=== PATIENT | female | born 1990 | race Caucasian/White ===

== ENCOUNTER → 2017-07-04 | Outpatient (CLI) | payer OTHER ==
[~2017-07-04] MED LIST: CIPR500T4 PO; NAPR-576 PO; OXYC1TAB63 PO; PHEN-426 PO
== END ==
LOC: HPND 08:36
PROVIDERS: ATTEND Obstetrics & Gynecology
DX: O48.0 Post-term pregnancy (principal)
CPT/HCPCS: 76816; 76818

== ENCOUNTER 2017-07-07 07:40 | Inpatient (IN) | payer OTHER ==
[2017-07-07] VITALS (105 sets, daily range): BP systolic 89–140; BP diastolic 33–99; PULSE 57–221; RESP 18–20; TEMP 97.8–98.8
[~2017-07-07] VITALS: Ht 165.1 cm; Wt 70.0 kg
[~2017-07-07 07:40] MED LIST changes: -OXYC1TAB63 PO
[2017-07-07] MEDS ORDERED: LACTATED RINGER'S 1000 ML INJ 1,000 ML IV PRN (08:31)
[2017-07-07] MEDS: LACTATED RINGER'S 1000 ML INJ 1,000 ML IV SCH ×2 (08:31→10:30)
--- NOTE | 2017-07-07 08:38 | HHI.HP ---
HPI Chief Complaint Induction Date Seen: Jul 07, 2017 Time Seen: 08:30 Travel History International Travel<30 Days: No Contact w/Intl Traveler<30Days: No Known Affected Area: No History of Present Illness HPI 26 yo G1 po for induction at 41 1/7 weeks and has CTX all night Weeks Gestation: 41 Para: 0 : 1 Last Menstrual Period: Jul 07, 2017 History Past Medical History Medical History: Denies Significant Hx Past Surgical History Surgical History: No Previous Surgery Family History Family History: Negative Social History Alcohol Use: No Tobacco Use: No Substance Abuse: No Allergies-Medications (Allergen,Severity, Reaction): Coded Allergies: No Known Allergies (Unverified , 10/07/11) Home Meds Active Scripts Phenazopyridine Hcl (Pyridium) 100 Mg Tab, 100 MG PO TID, #20 Prov:JAIMIE PACK MD 10/07/11 Ciprofloxacin Hcl (Cipro) 500 Mg Tab, 500 MG PO BID, #6 Prov:JAIMIE PACK MD 10/07/11 Reported Medications Naproxen (Naproxen) 500 Mg Tab, 500 MG PO DIRECTED Y 10/07/11 Review of Systems Except as stated in HPI: all other systems reviewed are Neg Physical Exam Narrative GENERAL: Well-nourished, well-developed patient. SKIN: Warm and dry. HEAD: Normocephalic and atraumatic. EYES: No scleral icterus. No injection or drainage. ENT: No nasal drainage noted. Mucous membranes pink. Airway patent. NECK: Supple, trachea midline. No JVD. CARDIOVASCULAR: Regular rate and rhythm without murmurs, gallops, or rubs. RESPIRATORY: Breath sounds equal bilaterally. No accessory muscle use. BREASTS: Bilateral exam showed no masses , no retractions, no nipple discharge. ABDOMEN/GI: Abdomen soft, non-tender, bowel sounds present, no rebound, no guarding Gravid to 41 weeks size Fundal Height: [-] GENITOURINARY: External Genitalia: intact and normal in appearance BUS glands: [-] Cervix: [-] Dilatation: 2 Effacement: 90 Station: [-] Presentation: vtx Membranes: intact Uterine Contractions: [-] FHT's: Category: 1 Baseline: [-] Reactive: [-] Variability: [-] Decels: [-] EXTREMITIES: No cyanosis or edema. BACK: Nontender without obvious deformity. No CVA tenderness. NEUROLOGICAL: Awake and alert. Motor and sensory grossly within normal limits. Five out of 5 muscle strength in all muscle groups. Normal speech. Caprini VTE Risk Assessment Caprini VTE Risk Assessment: No/Low Risk (score <= 1) Caprini Risk Assessment Model Point Value = 1 Point Value = 2 Point Value = 3 Point Value = 5 Age 41-60 Minor surgery BMI > 25 kg/m2 Swollen legs Varicose veins or History of unexplained or recurrent spontaneous Oral contraceptives or hormone replacement Sepsis (< 1 month) Serious lung disease, including pneumonia (< 1 month) Abnormal pulmonary function Acute myocardial infarction Congestive heart failure (< 1 month) History of inflammatory bowel disease Medical patient at bed rest Age 61-74 Arthroscopic surgery Major open surgery (> 45 min) Laparoscopic surgery (> 45 min) Malignancy Confined to bed (> 72 hours) Immobilizing plaster cast Central venous access Age >= 75 History of VTE Family history of VTE Factor V Leiden Prothrombin [id number] Lupus anticoagulant Anticardiolipin antibodies Elevated serum homocysteine Heparin-induced thrombocytopenia Other congenital or acquired thrombophilia Stroke (< 1 month) Elective arthroplasty Hip, pelvis, or leg fracture Acute spinal cord injury (< 1 month) Prophylaxis Regimen Total Risk Factor Score Risk Level Prophylaxis Regimen 0-1 Low Early ambulation 2 Moderate Order ONE of the following: *Sequential Compression Device (SCD) *Heparin 5000 units SQ BID 3-4 Higher Order ONE of the following medications: *Heparin 5000 units SQ TID *Enoxaparin/Lovenox 40 mg SQ daily (WT < 150 kg, CrCl > 30 mL/min) *Enoxaparin/Lovenox 30 mg SQ daily (WT < 150 kg, CrCl > 10-29 mL/min) *Enoxaparin/Lovenox 30 mg SQ BID (WT < 150 kg, CrCl > 30 mL/min) AND/OR *Sequential Compression Device (SCD) 5 or more Highest Order ONE of the following medications: *Heparin 5000 units SQ TID (Preferred with Epidurals) *Enoxaparin/Lovenox 40 mg SQ daily (WT < 150 kg, CrCl > 30 mL/min) *Enoxaparin/Lovenox 30 mg SQ daily (WT < 150 kg, CrCl > 10-29 mL/min) *Enoxaparin/Lovenox 30 mg SQ BID (WT < 150 kg, CrCl > 30 mL/min) AND *Sequential Compression Device (SCD) Data Data Vital Signs Reviewed: Yes Orders Orders Admit To Inpatient (07/07/17 ) Code Status (07/07/17 08:31) Vital Signs (Adult) .Per protocol (07/07/17 08:31) Heart (07/07/17 08:31) Amnioinfusion (07/07/17 08:31) Urinary Catheter Management .ONCE (07/07/17 08:31) Lactated Ringer's 1000 Ml Inj (Lr 1000 M (07/07/17 08:31) Lactated Ringer's 1000 Ml Inj (Lr 1000 M (07/07/17 08:31) Sodium Chlorid 0.9% 500 Ml Inj (Ns 500 M (07/07/17 08:45) Sodium Chlor 0.9% 1000 Ml Inj (Ns 1000 M (07/07/17 08:51) Lidocaine 1% Inj (50 Ml) (Xylocaine 1% I (07/07/17 08:45) Citric Acid-Sodium Citrate Liq (Bicitra (07/07/17 08:45) Fentanyl Inj (Fentanyl Inj) (07/07/17 08:45) Fentanyl Inj (Fentanyl Inj) (07/07/17 08:45) Complete Blood Count With Diff (07/07/17 08:31) Hold Clot (07/07/17 08:31) Abo/Rh Blood Type (07/07/17 08:31) Urinalysis - C+S If Indicated (07/07/17 08:31) Drug Screen, Random Urine (07/07/17 08:31) Ob/Psych Drug Screen, Urine (07/07/17 08:31) Resp Oxygen Non Rebreathe Mask (07/07/17 ) ^ Epidural / Intrathecal Infus (07/07/17 08:31) Oxytocin 30 Units-500ml Premix (Pitocin (07/07/17 08:45) Lidocaine 1% Inj (50 Ml) (Xylocaine 1% I (07/07/17 08:45) Light Mineral Oil (Muri-Lube Oil) (07/07/17 08:45) ^ Non Stress Test (07/07/17 08:31) Response To Medication .Post New Med Administration, Reaction (07/07/17 08:31) ^ Discontinue Medication (07/07/17 08:31) Oxytocin Drip (2-2-30) (07/07/17 08:45) Inpatient Certification (07/07/17 ) Specimen To Be Collected PRN (07/07/17 08:31) Specimen To Be Collected PRN (07/07/17 08:31) Group B Strep: Negative Assessment/Plan Problem List: (1) 41 weeks gestation of ICD Codes: Z3A.41 - 41 weeks gestation of Discharge Planning doing well Carlo Alfaro MD Jul 07, 2017 08:38
[2017-07-07] MEDS ORDERED: LIDOCAINE HCL 1% 50 ML VIAL INFIL PRN (08:45)
[2017-07-07] MEDS ORDERED: LIDOCAINE HCL 1% 50 ML VIAL I-DERMAL PRN (08:45)
[2017-07-07] MEDS ORDERED: SODIUM CHLORID 0.9% 500 ML INJ 500 ML IV PRN (08:45)
[2017-07-07] MEDS ORDERED: OXYTOCIN 30 UNITS-500ML PREMIX 500 ML IV PRN (08:45)
[2017-07-07] MEDS ORDERED: OXYTOCIN 30 UNITS-500ML PREMIX 500 ML IV ONE (08:45)
[2017-07-07] MEDS ORDERED: MINERAL OIL 10 ML VIAL TOPICAL PRN (08:45)
[2017-07-07] MEDS ORDERED: CITRIC ACID-SODIUM CITRATE LIQ 30 ML UDC PO SCH (08:45)
[2017-07-07 08:49] LABS: AUTOMATED NEUTROPHIL # 7.7 TH/MM3 (1.8-7.7); BASOPHIL # 0.1 TH/MM3 (0-0.2); BASOPHIL % 0.5 % (0.0-2.0); EOSINOPHIL % 0.2 % (0.0-4.0); HEMATOCRIT 39.7 % (35.0-46.0); HEMOGLOBIN 13.7 GM/DL (11.6-15.3); LYMPH % 13.4 % (9.0-44.0); LYMPHOCYTE # 1.3 TH/MM3 (1.0-4.8); MEAN CELL VOLUME 89.9 FL (80.0-100.0); MEAN CORPUSCULAR HEMOGLOBIN 31.1 PG (27.0-34.0); MEAN CORPUSCULAR HGB CONC 34.6 % (32.0-36.0); MONO % 7.1 % (0.0-8.0); MONOCYTE # 0.7 TH/MM3 (0-0.9); NEUT % 78.8 % (16.0-70.0); PLATELET COUNT 165 TH/MM3 (150-450); RED BLOOD COUNT 4.41 MIL/MM3 (4.00-5.30); RED CELL DISTRIBUTION WIDTH 14.2 % (11.6-17.2); WHITE BLOOD COUNT 9.8 TH/MM3 (4.0-11.0)
[2017-07-07] MEDS ORDERED: SODIUM CHLOR 0.9% 1000 ML INJ 1,000 ML IV PRN (08:51)
[2017-07-07 09:35] LABS: BILIRUBIN, URINE NEG (NEG); BLOOD, URINE SMALL (NEG); GLUCOSE,URINE NEG (NEG); KETONE, URINE NEG (NEG); NITRITE,URINE NEG (NEG); SQUAMOUS EPITHELIAL CELL URINE 4 /hpf (0-5); URINE COLOR LIGHT-YELLOW (YELLW/STRAW); URINE LEUKOCYTE ESTERASE NEG (NEG)
[2017-07-07] MEDS ORDERED: ONDANSETRON HCL 4 MG/2 ML VIAL IV PUSH PRN (11:30)
[2017-07-07] MEDS ORDERED: fentaNYL 2MCG-BUPIV 0.125% INJ 100 ML ONE (11:33)
[2017-07-07] MEDS ORDERED: ePHEDrine/NS 25 MG/5 ML SYRINGE ONE (11:34)
[2017-07-07] MEDS ORDERED: fentaNYL 2MCG-BUPIV 0.125% 100 ML EPIDURAL SCH (13:00)
[2017-07-07] MEDS ORDERED: DO NOT ADMINISTER ANTICOAGULANTS PRN (13:00)
[2017-07-07] MEDS ORDERED: NO SYSTEM NARCOTICS PRN (13:00)
[2017-07-07] MEDS ORDERED: ePHEDrine/NS 25 MG/5 ML SYRINGE IV PUSH PRN (13:00)
[2017-07-07] MEDS ORDERED: LIDOCAINE HCL 1% PF 30 ML VIAL ONE (15:59)
[2017-07-07] MEDS ORDERED: MEASLES, MUMPS, RUBELLA VACCINE 0.5 ML VIAL SQ ONE (16:00)
[2017-07-07] MEDS ORDERED: DIPHTH/TETANUS/ACEL PERTUSSIS (BOOSTER) 0.5 ML VIAL/PFS IM ONE (16:00)
[2017-07-07] MEDS ORDERED: SODIUM CHLORIDE 0.9% FLUSH 10 ML FLUSH IV FLUSH PRN (16:45)
[2017-07-07] MEDS ORDERED: oxyCODONE/ACETAMINOPHEN 5 MG/325 MG TAB PO PRN ×2 (16:45)
[2017-07-07] MEDS ORDERED: OXYTOCIN 30 UNITS-500ML PREMIX 500 ML IV SCH (16:45)
[2017-07-07] MEDS ORDERED: ACETAMINOPHEN 325 MG TAB PO PRN (16:45)
[2017-07-07] MEDS ORDERED: ALUMINUM/MAGNESIUM/SIMETH 30 ML CUP PO PRN (16:45)
[2017-07-07] MEDS ORDERED: ZOLPIDEM TARTRATE 5 MG TAB PO PRN (16:45)
[2017-07-07] MEDS ORDERED: WITCH HAZEL 50%/GLYCERIN 12.5% 40 PAD JAR TOPICAL PRN (16:45)
[2017-07-07] MEDS ORDERED: DOCUSATE SODIUM 50 MG/SENNA 8.6 MG TAB PO PRN (16:45)
[2017-07-07] MEDS ORDERED: BENZOCAINE 20% TOPICAL SPRAY 60 ML CAN TOPICAL PRN (16:45)
[2017-07-07] MEDS ORDERED: ONDANSETRON ODT 4 MG TAB PO PRN (16:45)
--- NOTE | 2017-07-07 16:52 | PD.OB.DELI ---
Weeks gestation: 41 Gest age assessed date: Jul 07, 2017 Gest age assessed time: 09:00 Pt started active labor?: Yes Active labor start date: Jul 07, 2017 Active labor start time: 09:00 Medical induction of labor?: Yes Medical induction start date: Jul 07, 2017 Medical induction start time: 09:00 Artificial rupture of membrane: Yes Artificial ROM date: Jul 07, 2017 Artifical ROM time: 09:00 Anesthesia: Epidural Episiotomy: None Vaginal Delivery: Normal, Spontaneous Presentation: Occiput anterior Nuchal Cord: None Delayed cord clamping (45 sec): Yes Infant: Female, Single Delivery date: Jul 07, 2017 Delivery time: 16:10 One Minute : 9 Five Minute : 9 Placenta: Manual removal, Not Intact (manual extraction with curettage), 3 vessel cord Estimated blood loss: 300 Carlo Alfaro MD Jul 07, 2017 16:52
[2017-07-07] MEDS ORDERED: ceFAZolin 2 GM PREMIX 50 ML IV ONE (17:15)
[2017-07-07] MEDS ORDERED: ceFAZolin 2 GM in NS 100 ML IV SCH (17:15)
[2017-07-07] MEDS: SODIUM CHLORIDE 0.9% FLUSH 10 ML FLUSH IV FLUSH SCH (21:14)
[2017-07-07] MEDS: IBUPROFEN 800 MG TAB PO PRN (21:14)
[2017-07-08] MEDS: LACTATED RINGER'S 1000 ML INJ 1,000 ML IV SCH ×2 (00:31→10:47)
[2017-07-08 07:53] VITALS: BP 112/76; PULSE 71; RESP 20; TEMP 98; O2SAT 100
--- NOTE | 2017-07-08 08:07 | HHI.OB ---
Subjective Post Day: 1 Objective Vitals/I&O Vital Signs Date Time Temp Pulse Resp B/P (MAP) Pulse Ox O2 Delivery O2 Flow Rate FiO2 07/08/17 07:53 71 20 112/76 (88) 100 07/08/17 07:53 98.0 07/07/17 20:11 98.8 91 18 140/82 (101) 07/07/17 18:16 80 128/74 (92) 07/07/17 18:00 79 124/80 (95) 07/07/17 17:46 82 115/65 (82) 07/07/17 17:30 75 120/71 (87) 07/07/17 17:23 18 07/07/17 17:20 98.0 07/07/17 17:19 103 108/33 (58) 07/07/17 16:47 221 107/78 (88) 07/07/17 15:35 104 07/07/17 15:31 110 101/73 (82) 07/07/17 15:30 99 07/07/17 15:25 86 07/07/17 15:20 59 07/07/17 15:15 57 07/07/17 15:15 59 118/73 (88) 07/07/17 15:10 68 07/07/17 15:05 69 07/07/17 15:00 68 07/07/17 15:00 72 115/71 (86) 07/07/17 14:55 69 07/07/17 14:50 83 07/07/17 14:45 59 07/07/17 14:45 98.5 18 07/07/17 14:45 58 112/65 (81) 07/07/17 14:40 59 07/07/17 14:35 67 07/07/17 14:30 66 126/75 (92) 07/07/17 14:30 65 07/07/17 14:25 69 07/07/17 14:20 68 07/07/17 14:16 66 89/72 (78) 07/07/17 14:15 67 07/07/17 14:10 70 07/07/17 14:05 64 07/07/17 14:01 85 118/98 (105) 07/07/17 14:00 70 07/07/17 13:55 68 07/07/17 13:55 64 108/61 (77) 07/07/17 13:50 66 07/07/17 13:46 74 116/61 (79) 07/07/17 13:45 67 07/07/17 13:40 75 07/07/17 13:35 80 07/07/17 13:31 90 98/68 (78) 07/07/17 13:30 73 07/07/17 13:25 70 07/07/17 13:20 74 07/07/17 13:16 74 107/54 (71) 07/07/17 13:15 72 07/07/17 13:10 69 07/07/17 13:05 88 07/07/17 13:02 175 103/68 (80) 07/07/17 13:00 87 07/07/17 12:55 90 07/07/17 12:50 79 07/07/17 12:45 165 07/07/17 12:45 88 122/77 (92) 07/07/17 12:40 79 07/07/17 12:39 97.8 20 07/07/17 12:35 96 121/70 (87) 07/07/17 12:35 92 07/07/17 12:31 107 111/69 (83) 07/07/17 12:30 101 07/07/17 12:25 96 117/85 (96) 07/07/17 12:25 159 07/07/17 12:20 95 119/72 (88) 07/07/17 12:20 93 07/07/17 12:15 93 127/99 (108) 07/07/17 12:15 77 07/07/17 12:11 119 140/73 (95) 07/07/17 12:10 104 07/07/17 12:05 82 127/77 (94) 07/07/17 12:05 82 07/07/17 11:55 82 07/07/17 11:50 77 07/07/17 11:45 69 07/07/17 11:40 70 07/07/17 11:35 71 07/07/17 11:30 64 07/07/17 11:15 66 07/07/17 11:10 67 07/07/17 11:07 62 126/85 (99) 07/07/17 11:05 66 07/07/17 11:00 65 4/9/18 10:55 58 07/07/17 10:50 66 07/07/17 10:45 74 07/07/17 10:40 60 07/07/17 10:35 66 07/07/17 10:30 75 07/07/17 10:20 69 07/07/17 10:15 64 07/07/17 10:15 97.9 07/07/17 10:10 63 07/07/17 10:05 60 07/07/17 10:00 63 07/07/17 09:55 64 07/07/17 09:50 65 07/07/17 09:45 61 07/07/17 09:40 65 07/07/17 09:35 70 07/07/17 09:30 65 07/07/17 09:25 66 07/07/17 09:20 68 07/07/17 09:15 64 07/07/17 09:10 70 07/07/17 09:05 59 07/07/17 09:00 64 07/07/17 08:55 61 07/07/17 08:50 66 07/07/17 08:45 68 07/07/17 08:40 72 07/07/17 08:35 68 07/07/17 08:30 71 07/07/17 08:25 70 07/07/17 08:20 74 07/07/17 08:15 18 Objective Remarks GENERAL: Well-nourished, well-developed patient. ABDOMEN/GI: Abdomen soft, non-tender. Fundus: Firm, non-tender at umbilicus. GENITOURINARY: Light to moderate bleeding. EXTREMITIES: No cyanosis or edema, non-tender, without signs of DVT. Medications and IVs Current Medications Medications (Trade) Dose Ordered Sig/Rosaura Route Start Time Stop Time Status Last Admin Lactated Ringer's 1,000 ml @ 125 mls/hr Q8H IV 07/07/17 08:31 07/07/17 10:30 Lactated Ringer's 1,000 ml @ 3,000 mls/hr Q20M PRN IV 07/07/17 08:31 Sodium Chloride 1,000 ml @ 100 mls/hr Q10H PRN IV 07/07/17 08:51 07/07/17 13:45 (Xylocaine 1% Inj (50 ml)) 0.1 ml UNSCH X1 PRN I-DERMAL 07/07/17 08:45 07/10/17 08:44 (Bicitra Liq) 30 ml AUTOMATION QA LEAD PO 07/07/17 08:45 07/11/17 08:44 (fentaNYL INJ) 50 mcg Q1H PRN IV PUSH 07/07/17 08:45 07/07/17 10:30 (fentaNYL INJ) 100 mcg Q1H PRN IV PUSH 07/07/17 08:45 (Xylocaine 1% Inj (50 ml)) 10 ml UNSCH X1 PRN INFIL 07/07/17 08:45 07/09/17 08:44 (Muri-Lube Oil) 10 ml UNSCH PRN TOPICAL 07/07/17 08:45 07/07/17 16:19 Oxytocin 500 ml @ 0 mls/hr TITRATE PRN IV 07/07/17 08:45 07/07/17 14:03 (Zofran Inj) 4 mg Q6H PRN IV PUSH 07/07/17 11:30 Miscellaneous Information No systemic narcotics to be given except... UNSCH PRN .XX 07/07/17 13:00 07/08/17 12:59 Miscellaneous Information DO NOT ADMINISTER ANY ANTICOAGUL... UNSCH PRN .XX 07/07/17 13:00 07/08/17 12:59 Fentanyl/ Bupivacaine HCl 100 ml @ 0 mls/hr TITRATE EPIDURAL 07/07/17 13:00 (ePHEDrine/NS 25 MG/5 ML SYR) 10 mg UNSCH PRN IV PUSH 07/07/17 13:00 07/08/17 12:59 (NS Flush) 2 ml BID IV FLUSH 07/07/17 21:00 07/07/17 21:14 (NS Flush) 2 ml UNSCH PRN IV FLUSH 07/07/17 16:45 (Tylenol) 650 mg Q4H PRN PO 07/07/17 16:45 (Motrin) 800 mg Q8H PRN PO 07/07/17 16:45 07/07/17 21:14 (Percocet 5-325 Mg) 1 tab Q4H PRN PO 07/07/17 16:45 (Percocet 5-325 Mg) 2 tab Q4H PRN PO 07/07/17 16:45 (Americaine 20% Top Spr) 1 spray Q4H PRN TOPICAL 07/07/17 16:45 07/07/17 21:14 (Tucks Pads) 1 applic QID PRN TOPICAL 07/07/17 16:45 07/07/17 21:15 (Marisol-Colace) 2 tab Q12H PRN PO 07/07/17 16:45 (Ambien) 5 mg HS PRN PO 07/07/17 16:45 (Mag-Al Plus Susp Liq) 15 ml Q8H PRN PO 07/07/17 16:45 (Zofran Odt) 4 mg Q6H PRN PO 07/07/17 16:45 Cefazolin Sodium 2000 mg/Sodium Chloride 100 ml @ 200 mls/hr AUTOMATION QA LEAD IV 07/07/17 17:15 07/10/17 17:14 07/07/17 18:46 Assessment/Plan Problem List: (1) 41 weeks gestation of ICD Codes: Z3A.41 - 41 weeks gestation of (2) Spontaneous vaginal delivery ICD Codes: O80 - Encounter for full-term uncomplicated delivery Discharge Planning dc home today Carlo Alfaro MD Jul 08, 2017 08:07
[2017-07-08] MEDS ORDERED: OXYC1TAB63 PO (08:08)
--- NOTE | 2017-07-08 09:14 | HHI.DCPOC ---
Discharge Care Plan Diagnosis: (1) Spontaneous vaginal delivery Report Symptoms to Your Doctor -Temperature above 100.5 degrees -Redness, of incision or excessive or foul smelling drainage -Unusual pain or calf pain -Increased vaginal bleeding -Painful or difficulty urinating -Feelings of extreme sadness or anxiety after 2 weeks Goals to Promote Your Health * To prevent worsening of your condition and complications * To maintain your health at the optimal level Directions to Meet Your Goals Take your medications as prescribed Follow your dietary instruction Follow activity as directed Ensure plenty of rest for recovery Drink fluids for hydration Keep your appointments as scheduled Take your immunizations and boosters as scheduled If your symptoms worsen call your PCP, if no PCP go to Urgent Care Center or Emergency Room Smoking is Dangerous to Your Health. Avoid second hand smoke Call the 24-hour crisis hotline for domestic abuse at Carlo Alfaro MD Jul 08, 2017 09:14
--- NOTE | 2017-07-08 09:16 | HHI.DS ---
Admission Date Jul 07, 2017 at 07:40 Discharge Date: Jul 08, 2017 Admitting Diagnosis Diagnosis: (1) Spontaneous vaginal delivery ICD Codes: O80 - Encounter for full-term uncomplicated delivery Delivery Date: Jul 07, 2017 Vaginal Delivery: Normal, Spontaneous Infant: Female, Single Brief History 26 yo G1 po for induction at 41 1/7 weeks and has CTX all night Hospital Course doing well no complaints Pt Condition on Discharge: Good Discharge Disposition: Discharge Home Discharge Instructions Diet Instructions: As Tolerated, No Restrictions Activities You Can Perform: Pelvic Rest Activities to Avoid: Driving for 24 hrs Follow up Referrals: REGISTRY RN - 2 Weeks @ [facility] with Carlo Alfaro MD New Medications: Oxycodone HCl/Acetaminophen (Oxycodone-Acetaminophen 5-325) 5 Mg-325 Mg Tablet 1 TAB PO Q4H PRN for PAIN SCALE 3 TO 5, #20 TAB Carlo Alfaro MD Jul 08, 2017 09:16
[2017-07-08] MEDS: SODIUM CHLORIDE 0.9% FLUSH 10 ML FLUSH IV FLUSH SCH ×2 (10:35→20:26)
[2017-07-08 20:00] VITALS: BP 121/71; PULSE 68; RESP 18; TEMP 98.2; O2SAT 97
[2017-07-08] MEDS: IBUPROFEN 800 MG TAB PO PRN (20:24)
[2017-07-09] MEDS: LACTATED RINGER'S 1000 ML INJ 1,000 ML IV SCH ×2 (00:31→08:46)
--- NOTE | 2017-07-09 08:08 | HHI.OB ---
Subjective Post Day: 2 Remarks doing well Objective Vitals/I&O Vital Signs Date Time Temp Pulse Resp B/P (MAP) Pulse Ox O2 Delivery O2 Flow Rate FiO2 07/08/17 20:00 98.2 68 18 121/71 (88) 97 Objective Remarks GENERAL: Well-nourished, well-developed patient. ABDOMEN/GI: Abdomen soft, non-tender. Fundus: Firm, non-tender at umbilicus. GENITOURINARY: Light to moderate bleeding. EXTREMITIES: No cyanosis or edema, non-tender, without signs of DVT. Medications and IVs Current Medications Medications (Trade) Dose Ordered Sig/Rosaura Route Start Time Stop Time Status Last Admin Lactated Ringer's 1,000 ml @ 125 mls/hr Q8H IV 07/07/17 08:31 07/07/17 10:30 Lactated Ringer's 1,000 ml @ 3,000 mls/hr Q20M PRN IV 07/07/17 08:31 Sodium Chloride 1,000 ml @ 100 mls/hr Q10H PRN IV 07/07/17 08:51 07/07/17 13:45 (Xylocaine 1% Inj (50 ml)) 0.1 ml UNSCH X1 PRN I-DERMAL 07/07/17 08:45 07/10/17 08:44 (Bicitra Liq) 30 ml DOCK OPERATOR PO 07/07/17 08:45 07/11/17 08:44 (fentaNYL INJ) 50 mcg Q1H PRN IV PUSH 07/07/17 08:45 07/07/17 10:30 (fentaNYL INJ) 100 mcg Q1H PRN IV PUSH 07/07/17 08:45 (Xylocaine 1% Inj (50 ml)) 10 ml UNSCH X1 PRN INFIL 07/07/17 08:45 07/09/17 08:44 (Muri-Lube Oil) 10 ml UNSCH PRN TOPICAL 07/07/17 08:45 07/07/17 16:19 Oxytocin 500 ml @ 0 mls/hr TITRATE PRN IV 07/07/17 08:45 07/07/17 14:03 (Zofran Inj) 4 mg Q6H PRN IV PUSH 07/07/17 11:30 Fentanyl/ Bupivacaine HCl 100 ml @ 0 mls/hr TITRATE EPIDURAL 07/07/17 13:00 (NS Flush) 2 ml BID IV FLUSH 07/07/17 21:00 07/07/17 21:14 (NS Flush) 2 ml UNSCH PRN IV FLUSH 07/07/17 16:45 (Tylenol) 650 mg Q4H PRN PO 07/07/17 16:45 (Motrin) 800 mg Q8H PRN PO 07/07/17 16:45 07/08/17 20:24 (Percocet 5-325 Mg) 1 tab Q4H PRN PO 07/07/17 16:45 (Percocet 5-325 Mg) 2 tab Q4H PRN PO 07/07/17 16:45 (Americaine 20% Top Spr) 1 spray Q4H PRN TOPICAL 07/07/17 16:45 07/07/17 21:14 (Tucks Pads) 1 applic QID PRN TOPICAL 07/07/17 16:45 07/07/17 21:15 (Marisol-Colace) 2 tab Q12H PRN PO 07/07/17 16:45 07/08/17 20:24 (Ambien) 5 mg HS PRN PO 07/07/17 16:45 (Mag-Al Plus Susp Liq) 15 ml Q8H PRN PO 07/07/17 16:45 (Zofran Odt) 4 mg Q6H PRN PO 07/07/17 16:45 Cefazolin Sodium 2000 mg/Sodium Chloride 100 ml @ 200 mls/hr DOCK OPERATOR IV 07/07/17 17:15 07/10/17 17:14 07/07/17 18:46 Assessment/Plan Problem List: (1) 41 weeks gestation of ICD Codes: Z3A.41 - 41 weeks gestation of (2) Spontaneous vaginal delivery ICD Codes: O80 - Encounter for full-term uncomplicated delivery Discharge Planning dc home today Carlo Alfaro MD Jul 09, 2017 08:08
[2017-07-09] MEDS: SODIUM CHLORIDE 0.9% FLUSH 10 ML FLUSH IV FLUSH SCH (10:02)
[2017-07-09] MEDS: IBUPROFEN 800 MG TAB PO PRN (10:43)
== END 2017-07-09 12:36 | disposition home or self-care (01) | DRG 775 ==
LOC: H2EA 07:40 → H1EA 19:54 → HNUR 07-09 00:48 → H1EA 07-09 01:01
PROVIDERS: ADMIT Obstetrics & Gynecology; ATTEND Obstetrics & Gynecology
PROC: 10E0XZZ Delivery of Products of Conception, External Approach (ICD-10-PCS; principal; 2017-07-07)
PROC: 10907ZC Drainage of Amniotic Fluid, Therapeutic from Products of Conception, Via Natural or Artificial Opening (ICD-10-PCS; 2017-07-07)
PROC: 3E033VJ Introduction of Other Hormone into Peripheral Vein, Percutaneous Approach (ICD-10-PCS; 2017-07-07)
PROC: 00HU33Z Insertion of Infusion Device into Spinal Canal, Percutaneous Approach (ICD-10-PCS; 2017-07-07)
PROC: 3E0R3BZ Introduction of Anesthetic Agent into Spinal Canal, Percutaneous Approach (ICD-10-PCS; 2017-07-07)
DX: O48.0 Post-term pregnancy (principal); Z37.0 Single live birth; Z3A.41 41 weeks gestation of pregnancy
CPT/HCPCS: 59025; 76816; 76818; 80307; 81001; 85025; 86900; 86901; 90715; G0481; J0690; J2590; J3010; J7030; J7120